=== PATIENT | female | born 1940 | race African-American/Black ===

== ENCOUNTER 2021-02-19 10:27 | Outpatient (CLI) | payer MEDICARE ==
[2021-02-19 12:11] LABS: Hemoglobin 10.5 g/dL (12.0-15.5)
[2021-02-19 12:27] LABS: Anion Gap 14 mmol/L (10-20); BUN (Urea Nitrogen) 16 mg/dL (9.8-20.1); Calc. Creatinine Clearance 0 mL/min (70-130); Calcium 10.5 mg/dL (7.8-10.44); Carbon Dioxide 26 mmol/L (23-31); Chloride 104 mmol/L (98-107); Glucose 109 mg/dL (83-110); Potassium 4.4 mmol/L (3.5-5.1); Sodium 140 mmol/L (136-145)
[2021-02-19 18:52] LABS: SARS-CoV-2 PCR by NAA Not Detected (NotDetected)
== END 2021-02-19 10:28 | disposition home or self-care (01) ==
LOC: CSHLAB 10:27
PROVIDERS: ATTEND Internal Medicine Gastroenterology
DX: Z01.818 Encounter for other preprocedural examination (principal); Z20.822 Contact with and (suspected) exposure to COVID-19
CPT/HCPCS: 80048; 85014; 85018; 93005; 93010; U0003; U0005

== ENCOUNTER 2021-02-24 05:51 | Day surgery (SDC) | payer MEDICARE ==
[2021-02-19 12:53] VITALS: BMI 32.9
[2021-02-24] MEDS ORDERED: Lidocaine 1% MPF 2 ML VIAL ONE (06:30)
[2021-02-24] MEDS ORDERED: PROPOFOL 20 ML ONE ×2 (06:36→07:35)
[2021-02-24] MEDS ORDERED: Midazolam HCl 2 mg/2 ml Vial ONE (06:36)
[2021-02-24] MEDS ORDERED: Fentanyl 100 MCG/2 ML VIAL ONE (06:37)
[2021-02-24] MEDS ORDERED: Ondansetron PF 4 MG/2 ML Vial ONE (06:37)
[2021-02-24] MEDS ORDERED: Rocuronium Bromide 10 MG/ML (10ML VIAL) ONE (06:37)
[2021-02-24] MEDS ORDERED: CEFAZOLIN 1 GM VIAL ONE (06:37)
[2021-02-24] MEDS ORDERED: Lidocaine 1% PF 5 ML VIAL ONE (06:37)
[2021-02-24] MEDS ORDERED: Lidocaine 1% w/Epinephrine 1:100K 30 ML VIAL ONE (06:37)
[2021-02-24] MEDS ORDERED: Dexamethasone 4 mg/ml Vial ONE (06:37)
[2021-02-24] MEDS ORDERED: Acetaminophen 325 MG TAB PO PRN (07:12)
[2021-02-24] MEDS ORDERED: Ondansetron ODT 4 MG TAB PO PRN (07:12)
[2021-02-24] MEDS ORDERED: HYDROcodone/Acetaminophen 5/325 mg Tablet PO PRN (07:12)
[2021-02-24] MEDS ORDERED: metFORMIN 500 MG TAB PO SCH (08:00)
[2021-02-24] MEDS ORDERED: Non-Formulary Medication 1 EACH (Hydralazine Hcl [Hydralazine Hcl] 50 MG Tablet) PO SCH (09:00)
[2021-02-24] MEDS ORDERED: Atenolol 50 MG TAB PO SCH (09:00)
[2021-02-24] MEDS ORDERED: Spironolactone 25 MG TAB PO SCH (09:00)
[2021-02-24] MEDS ORDERED: IRBESARTAN 300 MG PO SCH (09:00)
[2021-02-24] MEDS ORDERED: Amlodipine 5 MG TAB PO SCH (09:00)
== END 2021-02-24 14:40 | disposition home or self-care (01) ==
LOC: CSHSDC 05:51
PROVIDERS: ATTEND Otolaryngology Plastic Surgery within the Head & Neck
PROC: 0GTH0ZZ Resection of Right Thyroid Gland Lobe, Open Approach (ICD-10-PCS; principal; 2021-02-24)
DX: E04.2 Nontoxic multinodular goiter (principal); Z79.899 Other long term (current) drug therapy; Z79.84 Long term (current) use of oral hypoglycemic drugs; I10 Essential (primary) hypertension
CPT/HCPCS: 88307; J0690; J1100; J2250; J2405; J2704; J3010